=== PATIENT | female | born 1990 | race Caucasian/White ===

== ENCOUNTER → 2024-09-17 13:29 | Outpatient (REF) | payer BC, SELFPAY | LOC: RAD 13:29 | PROVIDERS: ATTENDING PHYSICIAN Obstetrics & Gynecology; FAMILY PHYSICIAN Family Medicine | DX: O26.899 Other specified pregnancy related conditions, unspecified trimester (principal) | CPT/HCPCS: 76801 ==

== ENCOUNTER → 2024-10-01 10:54 | Outpatient (REF) | payer BC, SELFPAY | LOC: PNTC 10:54 | PROVIDERS: ATTENDING PHYSICIAN Obstetrics & Gynecology | DX: Z36.0 Encounter for antenatal screening for chromosomal anomalies (principal); Z36.82 Encounter for antenatal screening for nuchal translucency | CPT/HCPCS: 76801; 76813 ==

== ENCOUNTER → 2024-11-10 10:57 | Outpatient (REF) | payer BC, SELFPAY | LOC: PNTC 10:57 | PROVIDERS: ATTENDING PHYSICIAN Obstetrics & Gynecology | DX: O09.529 Supervision of elderly multigravida, unspecified trimester (principal); O98.519 Other viral diseases complicating pregnancy, unspecified trimester | CPT/HCPCS: 76805 ==

== ENCOUNTER → 2024-12-16 13:19 | Outpatient (REF) | payer BC, SELFPAY | LOC: PNTC 13:19 | PROVIDERS: ATTENDING PHYSICIAN Student in an Organized Health Care Education/Training Program | DX: O09.529 Supervision of elderly multigravida, unspecified trimester (principal) | CPT/HCPCS: 76811 ==

== ENCOUNTER → 2025-02-09 11:29 | Outpatient (REF) | payer BC, SELFPAY | LOC: PNTC 11:29 | PROVIDERS: ATTENDING PHYSICIAN Student in an Organized Health Care Education/Training Program | DX: O24.410 Gestational diabetes mellitus in pregnancy, diet controlled (principal); O09.523 Supervision of elderly multigravida, third trimester; O99.213 Obesity complicating pregnancy, third trimester; O09.813 Supervision of pregnancy resulting from assisted reproductive technology, third trimester | CPT/HCPCS: 76816 ==

== ENCOUNTER → 2025-03-02 15:08 | Outpatient (REF) | payer BC, SELFPAY | LOC: PNTC 15:08 | PROVIDERS: ATTENDING PHYSICIAN Obstetrics & Gynecology | DX: O24.410 Gestational diabetes mellitus in pregnancy, diet controlled (principal); O09.523 Supervision of elderly multigravida, third trimester; O99.213 Obesity complicating pregnancy, third trimester; O09.813 Supervision of pregnancy resulting from assisted reproductive technology, third trimester | CPT/HCPCS: 59025; 76815 ==

== ENCOUNTER → 2025-03-09 15:15 | Outpatient (REF) | payer BC, SELFPAY | LOC: PNTC 15:15 | PROVIDERS: ATTENDING PHYSICIAN Obstetrics & Gynecology | DX: O24.410 Gestational diabetes mellitus in pregnancy, diet controlled (principal); O09.523 Supervision of elderly multigravida, third trimester; O99.213 Obesity complicating pregnancy, third trimester; O09.813 Supervision of pregnancy resulting from assisted reproductive technology, third trimester; Z87.59 Personal history of other complications of pregnancy, childbirth and the puerperium; O09.93 Supervision of high risk pregnancy, unspecified, third trimester | CPT/HCPCS: 76816 ==

== ENCOUNTER → 2025-03-16 11:27 | Outpatient (REF) | payer BC, SELFPAY | LOC: PNTC 11:27 | PROVIDERS: ATTENDING PHYSICIAN Obstetrics & Gynecology | DX: O24.410 Gestational diabetes mellitus in pregnancy, diet controlled (principal); O09.523 Supervision of elderly multigravida, third trimester; O99.213 Obesity complicating pregnancy, third trimester; O09.813 Supervision of pregnancy resulting from assisted reproductive technology, third trimester; Z87.59 Personal history of other complications of pregnancy, childbirth and the puerperium; O09.93 Supervision of high risk pregnancy, unspecified, third trimester | CPT/HCPCS: 59025; 76815 ==

== ENCOUNTER → 2025-03-23 11:32 | Outpatient (REF) | payer BC, SELFPAY | LOC: PNTC 11:32 | PROVIDERS: ATTENDING PHYSICIAN Obstetrics & Gynecology | DX: O24.410 Gestational diabetes mellitus in pregnancy, diet controlled (principal); O09.523 Supervision of elderly multigravida, third trimester; O99.213 Obesity complicating pregnancy, third trimester; O09.813 Supervision of pregnancy resulting from assisted reproductive technology, third trimester; Z87.59 Personal history of other complications of pregnancy, childbirth and the puerperium; O09.93 Supervision of high risk pregnancy, unspecified, third trimester | CPT/HCPCS: 59025; 76815 ==

== ENCOUNTER 2025-03-28 18:08 | Inpatient (IN) | payer BC, SELFPAY ==
[2025-03-28 18:15] VITALS: BMI 36.1
[2025-03-28 18:59] VITALS: BP 123/76; BMI 36.2
[2025-03-28] MEDS: LR 1000 IV ×2 (19:45→23:34)
[2025-03-28 19:49] LABS: Hematocrit 40.7 % (37.0-47.0); Hemoglobin 14.3 g/dL (12.0-16.0); Mean Corp Hgb Conc. 35.1 g/dL (33.0-37.0); Mean Corpuscular Volume 86.6 fL (81.0-99.0); Nucleated Red Blood Cells % 0 %; Platelet Count 146 10^3/uL (130-400); Red Cell Dist. Width 12.9 % (11.5-14.5)
[2025-03-28 19:58] VITALS: BP 123/76; BMI 36.2
[2025-03-28] MEDS: FENTANYL/BUPIVACAINE 100 EPIDURAL (20:37)
[2025-03-28] MEDS: SUBLIMAZE 100 MCG EPIDURAL (20:54)
[2025-03-28] MEDS: PEPCID 20 MG PO (21:19)
[2025-03-29] MEDS: PITOCIN 30 UNITS/NSS 500 ML IV (02:23)
[2025-03-29 02:38] LABS: Cord ABG Comment CORD BLOOD
[2025-03-29 02:53] LABS: B.E. Cord ABG -3.9 mMOL/L; HCO3 Cord ABG 25.4 mmol/L; O2 Saturation % Cord ABG 24.1 %; PCO2 Cord ABG 62 mmHg; PO2 Cord ABG 14 mmHg; pH Cord ABG 7.22
[2025-03-29] MEDS: PEPCID 20 MG PO (12:22)
[2025-03-29] MEDS: COLACE 100 MG PO ×2 (12:22→20:30)
[2025-03-29] MEDS: MOTRIN 600 MG PO ×2 (15:29→21:43)
[2025-03-29] MEDS: TYLENOL 650 MG PO (18:10)
[2025-03-29] MEDS: PRENATAL PLUS 1 TABLET PO (21:43)
[2025-03-29] MEDS: FEOSOL 325 MG PO (21:43)
[2025-03-30] MEDS: MOTRIN 600 MG PO (04:07)
[2025-03-30 05:19] LABS: Hematocrit 36.1 % (37.0-47.0); Hemoglobin 12.6 g/dL (12.0-16.0)
[2025-03-30] MEDS: PEPCID 20 MG PO (08:00)
[2025-03-30] MEDS: COLACE 100 MG PO (08:49)
[2025-03-31 15:09] LABS: Syphilis/T. pallidum Ab Reflex Negative (Negative)
[2025-03-31 22:36] LABS: Chlamydia trachomatis by TMA Negative (Negative); Neisseria gonorrhoeae by TMA Negative (Negative); Specimen Source Vaginal
== END 2025-03-30 18:18 | disposition home or self-care (01) | DRG 807 ==
LOC: LDRP 18:08
PROVIDERS: ADMITTING PHYSICIAN Student in an Organized Health Care Education/Training Program
PROC: 6A550ZT Pheresis of Cord Blood Stem Cells, Single (ICD-10-PCS; 2025-03-29)
PROC: 0KQM0ZZ Repair Perineum Muscle, Open Approach (ICD-10-PCS; 2025-03-29)
PROC: 10E0XZZ Delivery of Products of Conception, External Approach (ICD-10-PCS; 2025-03-29)
PROC: 10907ZC Drainage of Amniotic Fluid, Therapeutic from Products of Conception, Via Natural or Artificial Opening (ICD-10-PCS; 2025-03-29)
DX: O24.420 Gestational diabetes mellitus in childbirth, diet controlled (principal); Z37.0 Single live birth; Z3A.38 38 weeks gestation of pregnancy; O70.1 Second degree perineal laceration during delivery; H91.8X1 Other specified hearing loss, right ear; O99.214 Obesity complicating childbirth; O69.1XX0 Labor and delivery complicated by cord around neck, with compression, not applicable or unspecified; Z91.040 Latex allergy status; Z91.0110 Allergy to milk products, unspecified; Z91.018 Allergy to other foods
CPT/HCPCS: 82803; 85014; 85018; 85025; 86780; 86850; 86900; 86901; 87491; 87591